=== PATIENT | male | born 1940 | race Caucasian/White ===

== ENCOUNTER 2023-03-18 06:48 | Day surgery (SDC) | payer OTHER, MEDICARE, SELFPAY ==
--- NOTE | 2023-03-18 | PATH_ITS ---
[facility] Accession Number: [id number] No. of containers..04 Tissue . 01 Material submitted: . PART A: gastrointestinal site - ANTRUM PART B: gastrointestinal site - BODY PART C: colon - COLON POLYPS PART D: rectum - RECTAL POLYP . 01 Diagnosis: A. Stomach, Antrum, Biopsy: Gastric antral and transitional-type mucosa with reactive/chemical gastropathy. Negative for intestinal metaplasia and dysplasia. Negative for Helicobacter pylori organisms on immunohistochemistry. . B. Stomach, Body, Biopsy: Gastric corpus-type mucosa with changes suggestive of proton pump inhibitor therapy, focal erosion, and reactive change. Negative for intestinal metaplasia and dysplasia. Negative for Helicobacter pylori organisms on immunohistochemistry. . C. Colon Polyps, Polypectomy: Sessile serrated adenoma. Tubular adenoma. . D. Rectal Polyp, Polypectomy: A fragment of tubular adenoma. A fragment of hyperplastic/prolapse-type polyp. [facility] 03/28/2023 1814 Local . 01 Electronically signed: . Viviane Yousif MD, Pathologist NPI- [id number] . 01 Gross description: . Part A: ANTRUM: Received in formalin are 2 fragment(s) of byrnes, soft tissue measuring 0.1 x 0.1 x 0.1 cm in aggregate submitted entirely in 1 cassette(s) Part B: BODY: Received in formalin is 1 fragment(s) of byrnes, soft tissue measuring 0.3 x 0.1 x 0.1 cm submitted entirely in 1 cassette(s) Part C: COLON POLYPS: Received in formalin are 2 fragment(s) of byrnes, soft tissue measuring 0.1 x 0.1 x 0.1 cm to 0.2 x 0.2 x 0.2 cm submitted entirely in 1 cassette(s) Part D: RECTAL POLYP: Received in formalin are 2 fragment(s) of byrnes, soft tissue measuring 0.1 x 0.1 x 0.1 cm to 0.4 x 0.2 x 0.2 cm submitted entirely in 1 cassette(s) /JAYLENE 03/19/2023 1840 Local . 01 Microscopic: . A. An immunohistochemical stain was performed to evaluate for Helicobacter organisms and is negative. The control stain showed appropriate reactivity. . B. An immunohistochemical stain was performed to evaluate for Helicobacter organisms and is negative. The control stain showed appropriate reactivity. . * This test was developed and its performance characteristics determined by [employer]. It has not been cleared or approved by the [place]. Food and Drug Administration. The FDA has determined that such clearance or approval is not necessary. This test is used for clinical purposes. It should not be regarded as investigational or for research. . 01 Pathologist provided ICD-10: D12.6 . 01 CPT . 864647, 191331, 318522, 224341, G52992 Specimen Comment: A courtesy copy of this report has been sent to [phone] Performed at: 01 [facility] [address] [place] [address] [id number] MD Gianni Littlejohn MD Phone: [phone]
[2023-03-18 07:25] VITALS: BMI 28.7
[2023-03-18] MEDS: LACTATED RINGERS 1,000 ML 100 ML IV (07:42)
[2023-03-18 07:43] VITALS: BP 125/86; PULSE 66; RESP 17; TEMP 36.1; O2SAT 97
--- NOTE | 2023-03-18 07:57 | PM.HP.1 ---
History of Present Illness History of Present Illness Date Patient Seen: 03/18/23 Time Patient Seen: 07:57 Chief complaint: SDC Narrative: I reviewed the recent office note. No significant changes. Patient presents for colon polyp surveillance and upper endoscopy to exclude Barretts. He has GERD symptoms and is dependent on PPI at this point. [facility] Medical History Hyperlipemia Bilateral inguinal hernia Bee sting reaction Surgical History Hx of appendectomy Social History household members: spouse Smoking Status: Never smoker alcohol intake: current Meds Home Medications and Allergies Home Medications Medication Instructions Recorded Confirmed Type omeprazole 20 mg capsule,delayed 20 mg PO DAILY 12/22/19 03/18/23 History release triamcinolone acetonide 0.1 % 1 applic topical TID #80 grams 12/22/19 12/22/19 Rx topical cream vitamins A,C,Y-exgx-fdutvf 4,296 1 cap PO BID 12/22/19 03/18/23 History mcg-226 mg-90 mg capsule (PreserVision AREDS) atorvastatin 20 mg tablet 20 mg PO BEDTIME 03/18/23 03/18/23 History Allergies Allergy/AdvReac Type Severity Reaction Status Date / Time No Known Drug Allergies Allergy Verified 03/18/23 07:22 Review of Systems Review of Systems ROS: Yes All systems reviewed with the patient and are negative except as otherwise documented Exam Vital Signs (past 8 hours): - 03/18/23 07:43 Temperature 97.0 F L Pulse Rate 66 Respiratory Rate 17 Blood Pressure 125/86 Pulse Oximetry 97 Oxygen Delivery Method Room Air Oxygen Delivery Method Room Air Const General: cooperative HENMT Head: normal to inspection Eyes General: appearance normal, both eyes and all related structures Neck Neck: normal visual inspection Chest Chest: normal inspection of the chest Resp Effort & Inspection: normal respiratory effort Cardio Rate: regular rate GI Inspection: normal to inspection Skin General: no rashes or lesions noted Neuro General: patient alert and patient awake Extrem General: normal to inspection and no pedal edema Psych Appearance: grossly normal Assessment & Plan Assessment & Plan narrative: This is an 82-year-old male with chronic GERD and colon polyps. EGD and colonoscopy are pursued today.
--- NOTE | 2023-03-18 07:59 | PM.PREOP ---
Pre-operative Note Interval Note History & Physical reviewed/Exam performed by Physician: Yes Changes to H&P: No ASA Class (for procedural sedation): II
--- NOTE | 2023-03-18 08:50 | PM.OP.EC ---
Operative Date/Time/Diagnoses Date of procedure: 03/18/23 Time of procedure: 08:50 Pre-op diagnosis: GERD and colon polyps Post-op diagnosis: same Procedure & Clinicians Study performed: EGD with biopsies and a colonoscopy with cold forceps polypectomies Same procedure as scheduled: Yes Indications: GERD and colon polyps Surgeon: Crow Malik Procedure Notes SCOAP/Timeout: Done Procedure in detail: After the risks and benefits were explained, written and verbal informed consent was obtained. The patient was brought into the procedure room and placed into the left lateral decubitus position. Please see anesthesia notes for sedation details. The scope was introduced into the mouth through the bite block and advanced under direct visualization to the 2nd portion of the duodenum. The scope was slowly withdrawn carefully examining the mucosa for any defects or lesions. Retroflexed views were accomplished in the stomach. The stomach was decompressed, the scope was then removed from the patient who tolerated the procedure well. Patient was then turned around a digital rectal examination was accomplished. The scope was introduced into the rectum and advanced to the splenic flexure. Despite patient position changes and application of pressure we could not overcome this corner with the adult endoscope. I swapped out for a pediatric scope and was then able to easily navigate with abdominal pressure to cecum. The scope was slowly withdrawn to carefully examine the mucosa for any defects or lesions. Retroflexed views were accomplished in the rectum the colon was decompressed the scope removed from the patient who tolerated the procedure well. Adult and then pediatric colonoscope Bowel prep adequate Scope withdrawal time: 10 minutes Sedation minutes: 44 Complications: none Impression: 1. Duodenal: No pathology identified from the bulb through to the 2nd portion. 2. Stomach: Patient had stripes of erythema throughout the antrum. Biopsies were taken for exclusion of H pylori. There was a focus of eroded erythematous mucosa in the gastric body which was additionally biopsied. Patient had evidence of a sliding hiatal hernia with Hill grade 3 flap valve observed from the retroflexed position. 3. Esophagus: The squamocolumnar junction correlated with the top of the gastric folds. The GEJ was at about 39 cm from the incisors. No suggestion of Barretts. No evidence of any active esophagitis the remainder of the esophagus was unremarkable. 4. Colon: Patient had fairly extensive diverticulosis in the sigmoid. Colon navigation was challenging and required a scope change as described above. In the transverse colon there were a couple of polyps removed with cold forceps. The 1st was perhaps 3 mm and the regular forceps were employed. The 2nd polyp was sessile and a little bigger than say 5 mm. I initially attempted to use a hot snare but could not secure the snare around this polyp so we swapped out for Jumbo forceps and successfully removed it in 1 bite. In the rectum there were 2 diminutive polyps measuring 3-4 mm removed with cold forceps. No additional pathology was appreciated throughout. Endoscopic diagnosis 1. Gastropathy 2. Hiatal hernia 3. Colon polyps 4. Diverticulosis Post-procedure Plan for aftercare: 1. Await histopathology. 2. Continue anti-reflux therapy. 3. Contingent on pathology, consider surveillance colonoscopy. Disposition: PACU
[2023-03-18 08:53] VITALS: BP 114/72; PULSE 67; RESP 13; TEMP 36.2; O2SAT 96
[2023-03-18 08:58] VITALS: BP 118/80; PULSE 59; RESP 10; O2SAT 98
[2023-03-18 09:03] VITALS: BP 114/85; PULSE 59; RESP 17; O2SAT 99
[2023-03-18 09:10] VITALS: BP 112/77; PULSE 58; RESP 18; O2SAT 99
== END 2023-03-18 09:18 | disposition home or self-care (01) ==
PROVIDERS: Referring Provider Internal Medicine Gastroenterology; Visit Provider Internal Medicine Gastroenterology
PROC: 0DJ08ZZ Inspection of Upper Intestinal Tract, Via Natural or Artificial Opening Endoscopic (ICD-10-PCS; CPT 43235; principal; 2023-03-18 08:00)
PROC: 0DJD8ZZ Inspection of Lower Intestinal Tract, Via Natural or Artificial Opening Endoscopic (ICD-10-PCS; CPT 45378; 2023-03-18 08:00)
DX: Z12.11 Encounter for screening for malignant neoplasm of colon (principal); Z86.010 Personal history of colon polyps; K21.9 Gastro-esophageal reflux disease without esophagitis; K44.9 Diaphragmatic hernia without obstruction or gangrene; K31.9 Disease of stomach and duodenum, unspecified; K57.30 Diverticulosis of large intestine without perforation or abscess without bleeding; D12.6 Benign neoplasm of colon, unspecified; D12.8 Benign neoplasm of rectum
CPT/HCPCS: 45380; 43239; J2704

== ENCOUNTER → 2025-01-25 09:24 | Outpatient (CLI) | payer OTHER, SELFPAY ==
[2025-01-25 10:38] LABS: Hematocrit 41.5 % (41-53); Hemoglobin 14.1 g/dL (13.5-17.5); Mean Corpuscular HGB Conc 34.0 % (30-36); Mean Corpuscular Hemoglobin 31.4 PG (26-34); Mean Corpuscular Volume 92.5 fL (80-100); Platelet Count 244 X10^3/uL (150-400)
[2025-01-25 10:53] LABS: Blood Urea Nitrogen 19 mg/dL (9-20); Calcium 9.2 mg/dL (8.4-10.2); Carbon Dioxide 26 mmol/L (22-32); Chloride 104 mmol/L (98-107); Cholesterol 179 mg/dL (140-199); Estimated Glomerular Filt Rate > 60 mL/min (>60); Glucose 94 mg/dL (70-99); HDL Cholesterol 75 mg/dL (40-60); HEMOLYSIS 25 (0-50); Potassium 4.5 mmol/L (3.4-5.1); Sodium 139 mmol/L (137-145); Triglycerides 84 mg/dL (35-150)
== END ==
PROVIDERS: PCP Nurse Practitioner Family; Referring Provider Nurse Practitioner Family; Visit Provider Nurse Practitioner Family
DX: E78.2 Mixed hyperlipidemia (principal)
CPT/HCPCS: 36415; 80048; 80061; 85027

== ENCOUNTER → 2025-02-04 16:10 | Outpatient (CLI) | payer OTHER, SELFPAY ==
[2025-02-04 17:51] LABS: Influenza A - CEPHEID Flu A NEGATIVE (NEGATIVE); Influenza B - CEPHEID Flu B NEGATIVE (NEGATIVE)
[2025-02-04 19:13] LABS: COVID-19 CEPHEID 4-PLEX PCR POSITIVE (Negative)
== END ==
PROVIDERS: PCP Nurse Practitioner Family; Visit Provider Nurse Practitioner Family
DX: R05.1 Acute cough (principal)
CPT/HCPCS: 87637